=== PATIENT | male | born 1985 | race Hispanic/Latino ===

== ENCOUNTER 2020-11-14 15:01 | Inpatient (IN) | payer SELFPAY ==
[2020-11-14 16:16] LABS: #Basophils 0.1 thou/uL (0.0-0.2); #Lymphocytes 1.2 thou/uL (1.20-3.40); #Monocytes 0.4 thou/uL (0.11-0.59); #Neutrophils 4.8 thou/uL (1.40-6.50); %Basophils 1.2 % (0.0-1.0); %Eosinophils 0.3 % (0.0-10.0); %Lymphocytes 18.4 % (21.0-51.0); %Monocytes 5.9 % (0.0-10.0); %Neutrophils 74.3 % (42.0-75.0); Hemoglobin 12.7 g/dL (14.0-18.0); Mean Corpuscular HGB CONC 34.5 g/dL (32.0-36.0); Mean Corpuscular Hemoglobin 31.7 pg (27.0-31.0); Mean Corpuscular Volume 91.8 fL (78.0-98.0); Mean Platelet Volume 9.5 fL (7.4-10.4); Platelet Count 72 thou/uL (130-400); RBC Distribution Width 11.4 % (11.5-14.5); Red Blood Cell (RBC) Count 4.01 mill/uL (4.70-6.10); White Blood Cell (WBC) Count 6.5 thou/uL (4.8-10.8)
[2020-11-14] MEDS ORDERED: Lorazepam 2 MG/ML VIAL ONE (16:22)
[2020-11-14] MEDS ORDERED: Ondansetron ODT 4 MG TAB ONE (16:22)
[2020-11-14] MEDS ORDERED: Haloperidol Lactate 5 MG/ML VIAL ONE (16:22)
[2020-11-14 16:28] LABS: MDiff Complete? YES; Platelet Morphology Comment Appears Decreased; Polychromasia SLIGHT = 2-3 cells (100X) (0-2/hpf)
[2020-11-14 16:36] LABS: Anion Gap 13 mmol/L (10-20); BUN (Urea Nitrogen) 13 mg/dL (8.9-20.6); Calc. Creatinine Clearance 0 mL/min (70-130); Calcium 8.3 mg/dL (7.8-10.44); Carbon Dioxide 20 mmol/L (22-29); Chloride 107 mmol/L (98-107); Glucose 111 mg/dL (70-105); Potassium 3.4 mmol/L (3.5-5.1); Sodium 137 mmol/L (136-145)
[2020-11-14 17:14] LABS: CK (CPK) Greater than 40000 U/L (30-200)
[2020-11-14 17:18] LABS: Specific Gravity, Urine 1.042 (1.002-1.036)
[2020-11-14 17:29] LABS: Bilirubin Unable to Interpret (Negative); Blood, Urine Unable to Interpret (Negative); Clarity Hazy (Clear); Glucose, Urine (Dipstick) Unable to Interpret mg/dL (Negative); Ketone, Urine Unable to Interpret mg/dL (Negative); Leukocyte Unable to Interpret (Negative); Nitrite Unable to Interpret (Negative); Protein, Urine (Dipstick) Unable to Interpret mg/dL (Neg-Trace); RBC/HPF None Seen HPF (0-3); Urobilinogen UNABLE TO INTERPRET mg/dL (Less than 2)
[2020-11-14 17:30] LABS: Bacteria/HPF 1+ HPF (None Seen); Squamous Epithelial None Seen HPF (0-3)
[2020-11-14 20:59] LABS: Lactic Acid 1.2 mmol/L (0.5-2.2)
[2020-11-14] MEDS ORDERED: Ondansetron ODT 4 MG TAB SL PRN (22:00)
[2020-11-14] MEDS ORDERED: Sodium Chloride 0.9% 1,000 ML IV SCH (22:00)
[2020-11-14] MEDS ORDERED: Ondansetron PF 4 MG/2 ML Vial IVP PRN (22:00)
[2020-11-14] MEDS ORDERED: Acetaminophen 325 MG TAB PO PRN (22:00)
[2020-11-14 22:45] VITALS: BMI 24.8
[2020-11-15] MEDS ORDERED: Ondansetron PF 4 MG/2 ML Vial IVP PRN (00:26)
[2020-11-15] MEDS ORDERED: Potassium Chloride 20 MEQ TAB PO SCH (00:30)
[2020-11-15] MEDS ORDERED: Acetaminophen 500 MG TAB PO PRN (00:32)
[2020-11-15] MEDS: Sodium Chloride 0.9% 1,000 ML IV SCH ×6 (01:28→20:25)
[2020-11-15 02:50] LABS: Amphetamine Detected (NotDetected); Barbiturates Screen Not Detected (NotDetected); Benzodiazepine Screen Not Detected (NotDetected); Cocaine Metabolite Screen Not Detected (NotDetected); Methadone Not Detected (NotDetected); Methamphetamine Detected (NotDetected); Opiate Screen Not Detected (NotDetected); Oxycodone Screen Not Detected (NotDetected); Phencyclidine (PCP) Not Detected (NotDetected); THC/Cannabinoid Screen Not Detected (NotDetected); Tricyclic Screen Not Detected (NotDetected)
[2020-11-15 05:01] LABS: #Basophils 0.1 thou/uL (0.0-0.2); #Eosinphils 0.1 thou/uL (0.0-0.7); #Lymphocytes 2.7 thou/uL (1.20-3.40); #Monocytes 0.5 thou/uL (0.11-0.59); #Neutrophils 4.2 thou/uL (1.40-6.50); %Basophils 1.2 % (0.0-1.0); %Lymphocytes 35.5 % (21.0-51.0); %Neutrophils 55.3 % (42.0-75.0); Mean Corpuscular HGB CONC 34.4 g/dL (32.0-36.0); Mean Corpuscular Hemoglobin 32.1 pg (27.0-31.0); Mean Corpuscular Volume 93.1 fL (78.0-98.0); Mean Platelet Volume 9.4 fL (7.4-10.4); Platelet Count 78 thou/uL (130-400); RBC Distribution Width 11.6 % (11.5-14.5); Red Blood Cell (RBC) Count 4.06 mill/uL (4.70-6.10); White Blood Cell (WBC) Count 7.6 thou/uL (4.8-10.8)
[2020-11-15 05:19] LABS: ALT (SGPT) 1314 U/L (8-55); AST (SGOT) 1271 U/L (5-34); Albumin 3.2 g/dL (3.5-5.0); Alkaline Phosphatase 72 U/L (40-110); Anion Gap 11 mmol/L (10-20); BUN (Urea Nitrogen) 7 mg/dL (8.9-20.6); Bilirubin, Total 3.2 mg/dL (0.2-1.2); Calc. Creatinine Clearance 139 mL/min (70-130); Carbon Dioxide 22 mmol/L (22-29); Chloride 110 mmol/L (98-107); Globulin 2.6 g/dL (2.4-3.5); Glucose 81 mg/dL (70-105); Potassium 3.9 mmol/L (3.5-5.1); Protein, Total 5.8 g/dL (6.0-8.3); Sodium 139 mmol/L (136-145)
[2020-11-15 06:05] LABS: CK (CPK) Greater than 40000 U/L (30-200)
[2020-11-15 09:34] LABS: Acetaminophen Less than 6.0 mcg/mL (10.0-30.0)
[2020-11-16] MEDS: Sodium Chloride 0.9% 1,000 ML IV SCH ×2 (00:30→04:30)
[2020-11-16 04:45] LABS: #Eosinphils 0.2 thou/uL (0.0-0.7); #Lymphocytes 2.2 thou/uL (1.20-3.40); #Monocytes 0.7 thou/uL (0.11-0.59); #Neutrophils 4.1 thou/uL (1.40-6.50); %Basophils 0.6 % (0.0-1.0); %Eosinophils 2.8 % (0.0-10.0); %Monocytes 9.9 % (0.0-10.0); %Neutrophils 56.8 % (42.0-75.0); Hemoglobin 12.1 g/dL (14.0-18.0); Mean Corpuscular HGB CONC 35.6 g/dL (32.0-36.0); Mean Corpuscular Hemoglobin 33.3 pg (27.0-31.0); Mean Corpuscular Volume 93.4 fL (78.0-98.0); Mean Platelet Volume 8.8 fL (7.4-10.4); Platelet Count 100 thou/uL (130-400); RBC Distribution Width 11.6 % (11.5-14.5); Red Blood Cell (RBC) Count 3.64 mill/uL (4.70-6.10); White Blood Cell (WBC) Count 7.2 thou/uL (4.8-10.8)
[2020-11-16 05:09] LABS: ALT (SGPT) 924 U/L (8-55); AST (SGOT) 621 U/L (5-34); Albumin 2.9 g/dL (3.5-5.0); Alkaline Phosphatase 69 U/L (40-110); Anion Gap 8 mmol/L (10-20); BUN (Urea Nitrogen) 4 mg/dL (8.9-20.6); Bilirubin, Total 1.9 mg/dL (0.2-1.2); Calc. Creatinine Clearance 147 mL/min (70-130); Calcium 8.1 mg/dL (7.8-10.44); Carbon Dioxide 24 mmol/L (22-29); Chloride 111 mmol/L (98-107); Globulin 2.4 g/dL (2.4-3.5); Glucose 100 mg/dL (70-105); Magnesium 1.8 mg/dL (1.6-2.6); Potassium 3.8 mmol/L (3.5-5.1); Protein, Total 5.3 g/dL (6.0-8.3); Sodium 139 mmol/L (136-145)
[2020-11-16 05:36] LABS: CK (CPK) 17909 U/L (30-200)
[2020-11-16 08:59] VITALS: BP 116/80; TEMP 98.6
== END 2020-11-16 09:20 | disposition home or self-care (01) | DRG 917 ==
LOC: ERS 15:01 → ERHOLD 19:34 → 2NO 21:52
PROVIDERS: ADMIT Internal Medicine; ATTEND Family Medicine
DX: T40.5X1A Poisoning by cocaine, accidental (unintentional), initial encounter (principal); G92 Toxic encephalopathy; M62.82 Rhabdomyolysis; E87.2 Acidosis; N17.9 Acute kidney failure, unspecified; D69.6 Thrombocytopenia, unspecified; E86.0 Dehydration; D64.9 Anemia, unspecified; F15.10 Other stimulant abuse, uncomplicated; F14.10 Cocaine abuse, uncomplicated
CPT/HCPCS: 36415; 70450; 80048; 80053; 80143; 80306; 81003; 81015; 82550; 83605; 83690; 83735; 84443; 85025; 93005; 96374; 96375; 80307; J1630; J2060; J7050; Q0162

== ENCOUNTER 2021-09-14 16:03 | Emergency (ER) | payer SELFPAY ==
[2021-09-14 16:56] LABS: #Lymphocytes 1.5 thou/uL (1.20-3.40); #Monocytes 0.9 thou/uL (0.11-0.59); #Neutrophils 6.9 thou/uL (1.40-6.50); %Basophils 0.5 % (0.0-1.0); %Eosinophils 0.5 % (0.0-10.0); %Lymphocytes 16.1 % (21.0-51.0); %Monocytes 9.6 % (0.0-10.0); %Neutrophils 73.3 % (42.0-75.0); Hemoglobin 15.9 g/dL (14.0-18.0); Mean Corpuscular HGB CONC 33.6 g/dL (32.0-36.0); Mean Corpuscular Hemoglobin 32.1 pg (27.0-31.0); Mean Corpuscular Volume 95.5 fL (78.0-98.0); Mean Platelet Volume 8.6 fL (7.4-10.4); Platelet Count 218 thou/uL (130-400); RBC Distribution Width 11.8 % (11.5-14.5); Red Blood Cell (RBC) Count 4.97 mill/uL (4.70-6.10); White Blood Cell (WBC) Count 9.4 thou/uL (4.8-10.8)
[2021-09-14 17:17] LABS: ALT (SGPT) 38 U/L (8-55); AST (SGOT) 27 U/L (5-34); Albumin 4.8 g/dL (3.5-5.0); Alkaline Phosphatase 95 U/L (40-110); Anion Gap 17 mmol/L (10-20); BUN (Urea Nitrogen) 23 mg/dL (8.9-20.6); Bilirubin, Total 1.7 mg/dL (0.2-1.2); Calc. Creatinine Clearance 0 mL/min (70-130); Calcium 10.1 mg/dL (7.8-10.44); Carbon Dioxide 25 mmol/L (22-29); Chloride 102 mmol/L (98-107); Globulin 3.9 g/dL (2.4-3.5); Glucose 100 mg/dL (70-105); Lipase 7 U/L (8-78); Potassium 4.6 mmol/L (3.5-5.1); Protein, Total 8.7 g/dL (6.0-8.3); Sodium 139 mmol/L (136-145)
== END 2021-09-14 18:37 ==
LOC: ERS 16:03
DX: Z53.21 Procedure and treatment not carried out due to patient leaving prior to being seen by health care provider (principal)
CPT/HCPCS: 36415; 80053; 82550; 83690; 85025

== ENCOUNTER 2021-09-14 19:40 | Emergency (ER) | payer SELFPAY ==
[2021-09-14 20:40] LABS: Acetaminophen Less than 10.0 mcg/mL (10.0-30.0); Alcohol Less than 10 mg/dL (Less than 10); Lipase 8 U/L (8-78); Salicylate Less than 8.0 mg/dL (15.0-30.0)
[2021-09-14 20:41] LABS: CK (CPK) 204 U/L (30-200)
[2021-09-14] MEDS ORDERED: Ondansetron ODT 4 MG TAB ONE (21:33)
== END 2021-09-14 22:06 | disposition home or self-care (01) ==
LOC: ERS 19:40
DX: R11.2 Nausea with vomiting, unspecified (principal)
CPT/HCPCS: 80307; 83690; 99284; Q0162